=== PATIENT | female | born 1990 | race Caucasian/White ===

== ENCOUNTER 2018-03-31 10:15 | Inpatient (IN) | payer OTHER ==
[2018-03-31] MEDS ORDERED: Bicitra 30 ML UDCUP PO SCH (11:07)
[2018-03-31] MEDS ORDERED: Ondansetron PF 4 MG/2 ML Vial IVP PRN ×2 (11:07→16:00)
[2018-03-31] MEDS ORDERED: CEFAZOLIN/Water 2 GM/20 ML SYRINGE SLOW IVP SCH (11:07)
[2018-03-31] MEDS ORDERED: Promethazine HCl 25 MG/ML VIAL IM PRN ×2 (11:07→16:00)
[2018-03-31 11:08] VITALS: BMI 38.2
[2018-03-31] MEDS: Lactated Ringer's 1,000 ML IV SCH ×3 (11:10→19:38)
[2018-03-31 11:16] LABS: Hemoglobin 11.5 g/dL (12.0-16.0); Mean Corpuscular HGB CONC 33.7 g/dL (32.0-36.0); Mean Corpuscular Hemoglobin 29.8 pg (27.0-31.0); Mean Corpuscular Volume 88.4 fL (78.0-98.0); Mean Platelet Volume 8.6 fL (7.4-10.4); Platelet Count 143 thou/uL (130-400); Red Blood Cell (RBC) Count 3.87 mill/uL (4.20-5.40); White Blood Cell (WBC) Count 5.7 thou/uL (4.8-10.8)
--- NOTE | 2018-03-31 11:29 | PDOC.FPROB ---
FMR OB H&P: HPI - History of Present Illness Chief Complaint: scheduled Indentification: History of Present Illness: This is a 27yo at 39.4 EGA with sub optimal dating by LMP c/w 25.5w US presenting for repeat C section. Prior C section was due to Arrest of labor. Pt has no complaints or concerns at this time. Reports good mvt, denies vaginal bleeding, LOS, and significant contractions. was only significant for BV which she was treated for. Primary Care Physician: Dr. Ann DO FMR OB H&P: Current - Care : 2 Para: 1001 Gestational age: 39.4 Dating Criteria: LMP c/w 26.2w US sub optimal dating - OB Labs Blood type: AB RH: positive Antibody Screen: negative HIV: negative RPR: negative HepBsAg: negative Rubella: immune Quad screen: negative Urine drug screen: not done Gonorrhea: negative Chlamydia: negative 1 hour gtt: normal GBS: positive FMR OB H&P: History - Past Medical History PMH: none - OB History OB History: Prior C section for arrest of labor - Surgical History Sx History: C section - Social History Social History: denies etoh/tobacco/drugs - Family History Family History: CAD FMR OB H&P: Medications - Current Home Medications: Medication Instructions Recorded Confirmed Type Vit No.126/Iron/Folic 1 capsule PO DAILY 05/17/15 03/31/18 History [Classic ] Allergies/Adverse Reactions: Allergies Allergy/AdvReac Type Severity Reaction Status Date / Time No Known Allergies Allergy Verified 03/31/18 11:08 FMR OB H&P: ROS - Review of Systems General: denies: fever/chills, fatigue Eyes: denies: eye pain, vision changes ENT: denies: nasal congestion, rhinorrhea Cardiovascular: denies: chest pain, palpitation Respiratory: denies: congestion, shortness of breath Gastrointestinal: denies: abdominal pain, nausea, vomiting Genitourinary (Female): denies: dysuria, hematuria, polyuria Musculoskeletal: denies: pain, stiffness Neurologic: denies: syncope, seizures Integumentary: denies: rash, lesions Endocrine: denies: cold intolerance, heat intolerance Hematologic/Lymphatic: denies: prolonged or excessive bleeding Psychological: denies: depression, anxiety FMR OB H&P: Vital Signs - Maternal Vital signs: Vital Signs - First Documented Temp Pulse Resp BP 98.7 F 105 H 18 132/69 03/31/18 10:51 03/31/18 10:51 03/31/18 10:51 03/31/18 10:51 FMR OB H&P: Physical Exam - Physical Exam General: NAD, awake, alert and oriented HEENT: EOMI, grossly normal vision, grossly normal hearing Neck: supple, trachea midline Chest: non-tender to palpation Heart: RRR, normal S1/S2 General: CTAB, no wheezing Abdomen: gravid, bowel sound present Musculoskeletal: pulses present, no misalignment/asymmetry Neurological: sensation to pain,touch and proprioception grossly normal, no focal deficit Skin: no rash, good tugor Lymphatic: no unusual bruising or bleeding, no purpura Psychiatric: intact recent and remote memory, good judgement and insight FMR OB H&P: Results - Labs Lab results: Laboratory Results - last 24 hr 03/31/18 11:04 WBC 5.7 RBC 3.87 L Hgb 11.5 L Hct 34.2 L MCV 88.4 MCH 29.8 MCHC 33.7 RDW 15.0 H Plt Count 143 MPV 8.6 FMR OB H&P: A/P Discussion: 27yo at 39.4 EGA with sub optimal dating by LMP c/w 26.2w US presenting for repeat C section. Scheduled repeat A- pt has no acute problems and is ready for surgery. No signs/sympoms of maternal or distress P- admit pt to L&D - C section as OR is ready Addendum - Attending - Attending Attestation Date/Time: 03/31/18 1350 I personally evaluated the patient and discussed the management with Dr. Doyle , Maria Del Carmen, and Monica I agree with the History, Examination, Assessment and Plan documented above with any addition or exceptions noted below. 27 yo female at 39.4 wks by LMP/25.5 wk sono admitted for RLTCS. Patient doing well. No complaints. Reports good movement. No contractions , discharge, LOF, or vaginal bleeding. R/B/A discussed regarding repeat section. Patient would like to proceed with scheduled procedure. VS reviewed. Labs reviewed. Bedside sono performed. Cephalic. Anterior fundal placenta. Adequate fluid. Reactive NST. No contractions. 1. sIUP: IOB/2T/3T labs reviewed. Anatomy reviewed. GBS pos. 2. hx of LTCS 2/2 NRFHT remote from delivery, prolonged ROM, and failured postdates IOL after adequate contractions: Request repeat. 3. GBS carrier: Will receive Ancef prior to incision. No evidence of ROM or labor, therefore no need for ppx otherwise. 4. gThrombocytopenia: Mild. Has been stable in clinic. Will monitor pp. Dispo: Proceed with plan repeat when able. Eduardo
[2018-03-31] MEDS ORDERED: CEFAZOLIN 2 GM/50 ML-DEXTROSE 2 GM in Premix Bag 1 BAG IVPB SCH (11:30)
[2018-03-31 11:58] LABS: Syphilis Antibody Nonreactive (Nonreactive); Syphilis Antibody Index 0.03 S/CO (<1.00 Non-Reactive)
[2018-03-31 11:59] LABS: Hep B Surf Ag Non-Reactive S/CO (NonReactive)
[2018-03-31] MEDS ORDERED: ePHEDrine/0.9% NaCl/PF SYRINGE 50 mg/10 ml ONE ×2 (12:18→14:36)
[2018-03-31] MEDS ORDERED: PHENYLEPHRINE-NS 100 MCG/ML 10 ML SYRINGE ONE ×2 (12:18→14:36)
[2018-03-31] MEDS ORDERED: Morphine PF 1 MG/ML SYR ONE ×2 (14:35→15:05)
[2018-03-31] MEDS ORDERED: Ondansetron PF 4 MG/2 ML Vial ONE (14:36)
[2018-03-31] MEDS ORDERED: Ketorolac Tromethamine 30 MG/ML VIAL ONE (14:36)
[2018-03-31] MEDS ORDERED: Oxytocin 10 UNITS/ML VIAL ONE ×2 (14:36→17:10)
[2018-03-31] MEDS ORDERED: Naloxone HCl 0.4 mg/ml Vial IVP PRN ×2 (16:00)
[2018-03-31] MEDS ORDERED: Meperidine HCl/PF 25 MG/ML VIAL SLOW IVP PRN (16:00)
[2018-03-31] MEDS ORDERED: Ketorolac Tromethamine 30 MG/ML VIAL IVP SCH (16:00)
[2018-03-31] MEDS ORDERED: Naloxone HCl 0.4 mg/ml Vial IV PRN (16:00)
[2018-03-31] MEDS ORDERED: HYDROmorphone 2 MG/ML VIAL SLOW IVP PRN (16:00)
[2018-03-31] MEDS ORDERED: L&D-Morphine 4 MG/ML VIAL SLOW IVP PRN (16:00)
[2018-03-31] MEDS ORDERED: Promethazine HCl 25 MG SUPP PR PRN (16:00)
[2018-03-31] MEDS ORDERED: Communication Order-Pharmacy FS SCH (16:00)
[2018-03-31] MEDS ORDERED: Eucerin (Mineral Oil/Petrolatum,White) 30 gm Jar TOP PRN (16:00)
[2018-03-31] MEDS ORDERED: Ondansetron HCl/PF 4 MG/2 ML Vial IVP PRN (16:00)
[2018-03-31] MEDS ORDERED: Ketorolac Tromethamine 30 MG/ML VIAL IVP PRN (16:00)
[2018-03-31] MEDS ORDERED: NS / Oxytocin 40 units/1000ml 1,000 ML IV SCH (18:14)
[2018-03-31] MEDS ORDERED: Acetaminophen 325 MG TAB PO PRN (18:14)
[2018-03-31] MEDS ORDERED: Bisacodyl 10 MG SUPP PR PRN (18:14)
[2018-03-31] MEDS ORDERED: Carboprost 250 MCG/ML AMP ONE ×3 (18:41→19:01)
[2018-03-31] MEDS: Misoprostol 200 MCG TAB ONE ×4 (18:43→18:47)
[2018-03-31] MEDS ORDERED: NS / Oxytocin 40 units/1000ml 0 ML ONE (19:01)
[2018-03-31] MEDS ORDERED: Methylergonovine 0.2 MG/ML VIAL ONE (19:01)
--- NOTE | 2018-03-31 19:22 | PDOC.OBPPN ---
FMR OB PN: Subj - Interval History Hospital Day: 1 Day: 27 yr old s/p scheduled rLTCS approx 3.5 hrs PP. Called urgently to Post . As patient was being transferred at 1.5 hr, she was noted to have large amount vaginal blood loss- approx 350 ml. Within 20-30 min, 350 ml additional obtained. Vaginal sweep performed. Uterine fundus remained firm during this process. Chief Complaint: bleeding Interval History: FMR OB PN: Obj - Maternal Vital signs: BP: [122/65] HR: [124] RR: [18] - Lochia Lochia: increased lochia- few blood clots FMR OB PN: Exam - Physical Exam General: NAD, awake, alert and oriented Heart: normal S1/S2, no murmurs/rubs/gallops Deviation from normal: tachycardic and regular Abdomen: fundus(cm) (1 finger below umbilicus, firm) : bandage intact, appropriately tender - Pelvic Exam Deviation from normal: increased lochia, one approx half dollar size expressed on vaginal sweep FMR OB PN: Data - Labs Lab results: Laboratory Results - last 24 hr 03/31/18 03/31/18 03/31/18 11:04 11:04 11:04 WBC RBC Hgb Hct MCV MCH MCHC RDW Plt Count MPV Syphilis IgG/IgM Ab Nonreactive Hep Bs Antigen Non-Reactive Blood Type AB POSITIVE Antibody Screen NEGATIVE Crossmatch See Detail 03/31/18 11:04 WBC 5.7 RBC 3.87 L Hgb 11.5 L Hct 34.2 L MCV 88.4 MCH 29.8 MCHC 33.7 RDW 15.0 H Plt Count 143 MPV 8.6 Syphilis IgG/IgM Ab Hep Bs Antigen Blood Type Antibody Screen Crossmatch FMR OB PN: A/P - Problem List (1) Status post repeat low transverse section Current Visit: Yes Status: Acute Code(s): Z98.891 - HISTORY OF UTERINE SCAR FROM PREVIOUS SURGERY (2) hemorrhage Current Visit: Yes Status: Acute Code(s): O72.1 - OTHER IMMEDIATE HEMORRHAGE Qualifiers: hemorrhage type: unspecified Qualified Code(s): O72.1 - Other immediate hemorrhage Discussion: Date/Time: 03/31/181919 This note was discussed with Dr. Krugerd] who agree with the above documentation and plan. 27 yr old 3.5 hrs s/p scheduled rLTCS Post- hemorrhage qBL: 1551 ml patient receiving 2nd liter of pitocin PP, will start LR after complete. obtaining 2nd line s/p methergine s/p cytotec rectal 800 mg Vaginal sweep expressed couple half dollar size clots. uterus firm. H/H Pending 1 unit PRBC on stand by will reevaluate frequently rLTCS pain control, s/p 4 mg morphine during acute bleeding. monitor closely.
[2018-03-31] MEDS ORDERED: Morphine 2 MG/ML SYRINGE SLOW IVP SCH (19:30)
[2018-03-31 19:42] LABS: Hemoglobin 9.5 g/dL (12.0-16.0); Mean Corpuscular HGB CONC 33.9 g/dL (32.0-36.0); Mean Corpuscular Hemoglobin 30.3 pg (27.0-31.0); Mean Corpuscular Volume 89.5 fL (78.0-98.0); Platelet Count 142 thou/uL (130-400); Red Blood Cell (RBC) Count 3.12 mill/uL (4.20-5.40); White Blood Cell (WBC) Count 6.8 thou/uL (4.8-10.8)
[2018-03-31 20:01] LABS: #Monocytes 0.4 thou/uL (0.11-0.59); #Neutrophils 5.3 thou/uL (1.40-6.50); %Basophils 0.3 % (0.0-1.0); %Eosinophils 0.6 % (0.0-10.0); %Lymphocytes 15.1 % (21.0-51.0); %Monocytes 5.1 % (0.0-10.0); %Neutrophils 78.9 % (42.0-75.0); Anisocytosis SLIGHT = 6-15 cells (100X) (0-5/hpf); MDiff Complete? YES; Platelet Morphology Comment Appears Adequate
--- NOTE | 2018-03-31 22:09 | PDOC.OBPPN ---
FMR OB PN: Subj - Interval History Hospital Day: 1 Day: 0 Patient reports feeling well. Denies any lightheadedness or palpitations. Per nurse bleeding has significantly decreased since last evaluation. FMR OB PN: Obj - Maternal Vital signs: BP: 123/59 HR: 108 RR: 18 - Urine output I&O: 03/30/18 03/31/18 04/01/18 06:59 06:59 06:59 Output Total 390 Balance -390 - Lochia Lochia: minimal bleeding - Pain Management Intervention: IV medication FMR OB PN: Exam - Physical Exam General: NAD, awake, alert and oriented HEENT: normocephalic and atraumatic, grossly normal vision, grossly normal hearing Heart: normal S1/S2 General: CTAB, no respiratory distress, good air movement, no rales/rhonchi, no wheezing Abdomen: other (fundus appropriately tender) Musculoskeletal: pulses present, FROM in all four extremities Skin: no rash, good tugor : bandage intact, no drainage, appropriately tender Psychiatric: intact recent and remote memory, good judgement and insight, normal mood and affect FMR OB PN: Data - Labs Lab results: Laboratory Results - last 24 hr 03/31/18 03/31/18 03/31/18 11:04 11:04 11:04 WBC RBC Hgb Hct MCV MCH MCHC RDW Plt Count MPV Neutrophils % Neutrophils % (Manual) Lymphocytes % Monocytes % Eosinophils % Basophils % Neutrophils # Lymphocytes # Monocytes # Eosinophils # Basophils # Plt Morphology Comment Anisocytosis Syphilis IgG/IgM Ab Nonreactive Hep Bs Antigen Non-Reactive Blood Type AB POSITIVE Antibody Screen NEGATIVE Crossmatch See Detail 03/31/18 03/31/18 11:04 19:20 WBC 5.7 6.8 RBC 3.87 L 3.12 L Hgb 11.5 L 9.5 L Hct 34.2 L 27.9 L MCV 88.4 89.5 MCH 29.8 30.3 MCHC 33.7 33.9 RDW 15.0 H 15.0 H Plt Count 143 142 MPV 8.6 6.0 L Neutrophils % 78.9 H Neutrophils % (Manual) Not Reportable Lymphocytes % 15.1 L Monocytes % 5.1 Eosinophils % 0.6 Basophils % 0.3 Neutrophils # 5.3 Lymphocytes # 1.0 L Monocytes # 0.4 Eosinophils # 0.0 Basophils # 0.0 Plt Morphology Comment Appears Adequate Anisocytosis SLIGHT = 6-15 cells Syphilis IgG/IgM Ab Hep Bs Antigen Blood Type Antibody Screen Crossmatch FMR OB PN: A/P - Problem List (1) hemorrhage Current Visit: Yes Status: Acute Code(s): O72.1 - OTHER IMMEDIATE HEMORRHAGE Qualifiers: hemorrhage type: unspecified Qualified Code(s): O72.1 - Other immediate hemorrhage (2) Status post repeat low transverse section Current Visit: Yes Status: Acute Code(s): Z98.891 - HISTORY OF UTERINE SCAR FROM PREVIOUS SURGERY (3) Prolonged rupture of membranes, greater than 24 hours, delivered Current Visit: No Status: Acute Code(s): O42.10 - FABIEN ROM, ONSET LABOR > 24 HR FOL RUPT, UNSP WEEKS OF GEST (4) Status post section Current Visit: No Status: Acute Code(s): Z98.89 - OTHER SPECIFIED POSTPROCEDURAL STATES * DO NOT USE * Disposition: 27 yr old post-op day #0 s/p scheduled rLTCS Post- hemorrhage - Aware, qBL ~1551 ml since delivery but significant decrease in bleeding s/p methergine and cytotec & a 1L bolus of LR. - Repeat Hgb only down to 9.5 from 11.5 on admission. - Vitals stable w/ improving tachycardia. - Will continue to monitor vitals closely. Post-op day #0 s/p rLTCS - Will continue routine care. Discussion: Date/Time: 03/31/182208 This H&P was discussed with Dr. Thompson and Dr. Amaya who agree with the above documentation and plan.
--- NOTE | 2018-03-31 23:59 | OP ---
DATE OF PROCEDURE: 03/31/2018 RESIDENT SURGEON: Dr. Mehrdad Juarez. CNC GRINDER SURGEON: Dr. Shadi Regalado. ATTENDING SURGEON: Dr. Carol Herring. PROCEDURE PERFORMED: Repeat low transverse section. PREOPERATIVE DIAGNOSES: 1. Term intrauterine . 2. Previous section. 3. Gestational thrombocytopenia. 4. Anemia of . 5. GBS carrier. 6. Late care. POSTOPERATIVE DIAGNOSES: 1. Term intrauterine delivered. 2. Repeat low transverse section. 3. Gestational thrombocytopenia. 4. Anemia of . 5. GBS carrier. 6. Late care. ANESTHESIA: Spinal. INDICATIONS: The patient is a 27-year-old, G2, P1-0-0-1, female at 39 and 4 weeks gestation by LMP consistent with 25.5 week sono, who presented for repeat scheduled section. Risk, benefits, and alternatives with discussed with patient. Questions answered. Consents signed. Proceeded with planned repeat LTCS. DESCRIPTION OF PROCEDURE: After risks, benefits, and alternatives were explained to the patient, she gave informed consent. Preoperative antibiotics included 2 g of Ancef IV. The patient was taken to the operating room and spinal anesthesia was initiated. A time out was performed. The patient was placed in supine position with a left tilt and prepped and draped in usual sterile fashion. A Pfannenstiel incision was made with a scalpel and carried down to the level of the fascia which was sharply nicked. The fascial cut was extended bilaterally with Mcintyre scissors. The inferior and superior edges of the cut fascial edges were elevated with Krystian clamps and the underlying rectus muscles were bluntly and sharply dissected free. The recti were divided digitally and retracted manually. The peritoneum was entered bluntly and retracted manually. A large Dean O was then placed. A low transverse score was made with a scalpel and the uterus was entered in the midline with the scalpel. Clear fluid was seen. Hysterotomy was extended manually with cephalocaudal pressure. The infant was noted to be vertex and was easily delivered by fundal pressure. The mouth and nares were bulb suctioned. Delayed cord clamping was performed. After 60 seconds, the cord was clamped and cut. A grossly normal female was handed to awaiting nurse. Cord blood was obtained. Placenta was spontaneously delivered, found to be intact with 3-vessel cord, and discarded. The uterus was externalized and endometrium was curetted with a dry lap. The uterus was then closed with a running locking 1 Monocryl suture. Following this, hemostasis was noted and uterus was firm. The abdomen was suctioned free of clots. The uterus was then internalized and the hysterotomy was again noted to be hemostatic. The fascia was closed with a running nonlocking 0 PDS suture x 2. Subcutaneous tissue was irrigated and bleeders were cauterized with Bovie cauterization. Subsequently, the subcutaneous tissue was approximated with 3 simple interrupted 2-0 chromic gut sutures. The skin was then approximated with garret and a pressure dressing was placed. All counts were correct. The patient tolerated the procedure well and was taken to the recovery room in stable condition. QBL: 466 mL. COMPLICATIONS: None SPECIMENS: Cord blood sent to lab for blood type. Intact placenta discarded. FINDINGS: Grossly normal female infant with Apgars of 8 and 9. Delivery at 1547. Grossly normal placenta with 3-vessel cord. DRAINS: Bryant to gravity, draining clear urine. Job ID: [id number] Attending Note: I was present and participated in the procedure documented above and agree with the documentation. 27 yo female at 39.4 wks by LMP/25.5 wk sono admitted for repeat LTCS. was complicated by late care, anemia of , BMI 38, gestational thrombocytopenia, GBS carrier, and prior LTCS due to failed IOL and NRFHT. R/B/A discussed. Consents signed. Time out performed. Proceeded with repeat LTCS. Uncomplicated section. No significant scaring encounter. Uterus closed in 1 layer. Hemostatic full closure. Urine clear. Skin closed with garret. Pressure dressing placed. Female was delivery OA position at 1547. Placenta removed intact. Routine recovery and care. Eduardo TELLES
[2018-04-01] MEDS: diphenhydrAMINE 50 MG/ML VIAL IVP PRN ×2 (00:17→05:00)
[2018-04-01] MEDS: Lactated Ringer's 1,000 ML IV SCH ×3 (00:20→06:45)
[2018-04-01] MEDS: HYDROcodone/Acetaminophen 5/325 mg Tablet PO PRN ×4 (04:24→20:31)
--- NOTE | 2018-04-01 07:48 | PDOC.PP ---
Post Progress Note Post Day #: 1 Subjective: 27 yo s/p rLTCS po day #1. Complicated by PPH overnight s/p methergine and cytotec. Currently pt reports feeling tired, otherwise no complaints. Bleeding has stopped after med administration. PO intake tolerated: yes Flatus: no Ambulation: no Vital Signs (12 hours) Temp Pulse Resp BP 04/01/18 04:15 98.5 F 113 H 18 118/55 L 04/01/18 00:00 98.3 F 113 H 20 115/66 03/31/18 21:55 125 H 20 112/60 03/31/18 20:30 118 H 20 124/62 03/31/18 20:15 113 H 20 124/66 03/31/18 20:00 113 H 20 130/73 Weight Weight 104.326 kg - Physical Examination General: NAD Cardiovascular: no m/r/g Deviation from normal: tachycardic, regular rhythm Respiratory: clear to auscultation bilaterally Abdominal: + bowel sounds, lochia, no distention, appropriately TTP Deviation from normal: pressure dressing remains in place, remove later this afternoon Neurological: no gross focal deficits Psychiatric: normal affect Result Diagrams: 04/01/18 06:59 Additional Labs: Post Labs Blood Type AB POSITIVE 03/31/18 11:04 Hep Bs Antigen Non-Reactive S/CO (NonReactive) 03/31/18 11:04 (1) hemorrhage Code(s): O72.1 - OTHER IMMEDIATE HEMORRHAGE Status: Acute Qualifiers: hemorrhage type: unspecified Qualified Code(s): O72.1 - Other immediate hemorrhage (2) Status post repeat low transverse section Code(s): Z98.891 - HISTORY OF UTERINE SCAR FROM PREVIOUS SURGERY Status: Acute - Assessment/Plan 1) s/p rLTCS - QBL 1550 - additional 35omL lost overnight - uterus remains firm - bleeding now scant after med administration - ADAT, remove anthony and pressure dressing this afternoon and encourage ambulation 2) PPH: - see #1 - repeat hemagram @ 1200 - mildly tachycardic - cont IVF resusc Dispo: stable, trend h/h, monitor Is/Os, anthony out and pressure dressing removed this afternoon. Addendum - Attending - Attending Attestation Date/Time: 04/01/18 1233 I personally evaluated the patient and discussed the management with Dr. Juarez I agree with the History, Examination, Assessment and Plan documented above with any addition or exceptions noted below. 27 yo now female s/p RLTCS at 39.4 wks on 03/31/18 at 1547. HD#1 POD/PPD#1 Patient reporting fatigue, weakness, and generalized tiredness. Noted to have PPH last night. Lochia now mild. . Denies dizziness, CP, palpitations, SOB. VS reviewed. Labs reviewed. Weak/tired. AAO x 4 Increase HR, regular. no murmurs CTA bilaterally. no w/c/r Fundus firm. Appropriately tender. Incision clean and dry. no drainage or erythema. garret in place. FROM x 4. no edema 1. s/p RLTCS: Uncomplicated section. QBL 466 mL. Continue routine pp care. Remove garret prior to d/c on hospital day 3. 2. BMI 38: Lifestyle changes. Encourage . 3. GBS carrier: No s/sx of infection. 4. gThrombocytopenia: Monitor. 5. PPH: Likely related to placenta bed involution and thrombocytopenia. Resolved with miso, pit, and methergine. Lochia appropriate now. Continue to monitor VS and UOP closely. Reports fatigue. Will bolus 1L and re-evaluate. Discussed blood products with patient at bedside. Iron started. Check orthostatics prior to patient ambulating. 6. Contraception: LARC Dispo: Continue current care. Monitor closely throughout the day due to possible need for transfusion. Eduardo
[2018-04-01 08:25] LABS: Hemoglobin 7.3 g/dL (12.0-16.0); Mean Corpuscular HGB CONC 33.7 g/dL (32.0-36.0); Mean Corpuscular Hemoglobin 30.2 pg (27.0-31.0); Mean Corpuscular Volume 89.6 fL (78.0-98.0); Mean Platelet Volume 8.2 fL (7.4-10.4); Platelet Count 113 thou/uL (130-400); RBC Distribution Width 15.1 % (11.5-14.5); Red Blood Cell (RBC) Count 2.42 mill/uL (4.20-5.40); White Blood Cell (WBC) Count 5.7 thou/uL (4.8-10.8)
[2018-04-01] MEDS ORDERED: Adacel (T-DAP) 0.5 ML SYRINGE IM ONE (09:00)
[2018-04-01] MEDS ORDERED: Lactated Ringer's 1,000 ML IV SCH (09:00)
[2018-04-01] MEDS: Prenatal Vitamin 1 TAB PO SCH (09:55)
--- NOTE | 2018-04-01 17:14 | PDOC.EVN ---
Event Note - Event Note Event Note: S: Pt states that she feels better and less fatigued compared to this morning. She is ambulating well without symptoms. She denies chest pain, palpitations, dyspnea, RHODES, and nausea. Pain well controlled with PO medications. O: orthostatic vitals wnl. Gen: alert and oriented in no distress. Heart: mildly tachycardic, no murmurs, rubs, or gallops. Lungs: clear to auscultation bilaterally A/P POD #2 s/p rLTCS complicated by PPH a few hours after delivery. -pt is asymptomatic at this time. - will hold off on transfusion at this time. May consider H/H and transfusion if pt becomes symptomatic. - continue routine PP care.
[2018-04-01] MEDS ORDERED: Sodium Chloride 0.9% 10 ML ONE (18:24)
[2018-04-01] MEDS: Ferrous Sulfate 325 MG TAB PO SCH (18:26)
[2018-04-01] MEDS: Ibuprofen 800 MG TAB PO PRN (20:30)
[2018-04-01] MEDS: Simethicone Chewable 80 MG TAB PO PRN (20:30)
[2018-04-02] MEDS: Simethicone Chewable 80 MG TAB PO PRN ×2 (05:08→14:39)
[2018-04-02] MEDS: Ibuprofen 800 MG TAB PO PRN ×2 (05:08→14:39)
[2018-04-02] MEDS: HYDROcodone/Acetaminophen 5/325 mg Tablet PO PRN ×3 (05:13→14:39)
[2018-04-02] MEDS: Ferrous Sulfate 325 MG TAB PO SCH ×2 (09:15→20:21)
[2018-04-02] MEDS: Prenatal Vitamin 1 TAB PO SCH (09:15)
--- NOTE | 2018-04-02 09:37 | PDOC.PP ---
Post Progress Note Post Day #: 2 Subjective: 27 yo postop day s/p rLTCS w/o perioperative complications. Pt had PP hemorrhage and was given methergine and cytotec PP day 1. Since medications given, no other bleeding. One clot per nursing report, otherwise scant bleeding. Pt denies dizziness, lightheadedness, global weakness, cp, sob, ruq/ epigastric pain. PO intake tolerated: yes Flatus: yes Ambulation: yes Vital Signs (12 hours) Temp Pulse Resp BP BP BP Pulse Ox 04/02/18 08:13 98.4 F 101 H 20 124/71 96 04/02/18 04:00 98.2 F 99 20 120/63 04/02/18 00:00 98.6 F 105 H 20 123/61 Weight Weight 104.326 kg - Physical Examination General: NAD Cardiovascular: no m/r/g, RRR Respiratory: clear to auscultation bilaterally, non-labored breathing Abdominal: + bowel sounds, lochia, no distention, appropriately TTP Skin: CS incision dry & intact, no rash Neurological: no gross focal deficits Psychiatric: normal affect Result Diagrams: 04/01/18 06:59 Additional Labs: Post Labs Blood Type AB POSITIVE 03/31/18 11:04 Hep Bs Antigen Non-Reactive S/CO (NonReactive) 03/31/18 11:04 (1) hemorrhage Code(s): O72.1 - OTHER IMMEDIATE HEMORRHAGE Status: Acute Qualifiers: hemorrhage type: unspecified Qualified Code(s): O72.1 - Other immediate hemorrhage (2) Status post repeat low transverse section Code(s): Z98.891 - HISTORY OF UTERINE SCAR FROM PREVIOUS SURGERY Status: Acute (3) Gestational thrombocytopenia Code(s): O99.119 - OTH DIS OF BLD/BLD-FORM ORG/IMMUN MECHNSM COMP PREG,UNSP TRI ; D69.6 - THROMBOCYTOPENIA, UNSPECIFIED Status: Acute - Assessment/Plan 1) s/p rLTCS - pt post op course complicated by PPH w/ qbl pp 1550. This is jacki 2/2 gestational thrombocytopenia. Latest Hgb 7.3. Tachycardia is resolving and pt is asymptomatic. Ambulating without trouble. As such, no repeat hemagram unless pt becomes symptomatic. Cont oral iron. - jacki [place] tomorrow 2) PPH - see #1 3) Gest thrombocytopenia - see #1 Addendum - Attending - Attending Attestation Date/Time: 04/02/18 1057 I personally evaluated the patient and discussed the management with Dr. Juarez I agree with the History, Examination, Assessment and Plan documented above with any addition or exceptions noted below. 27 yo now female s/p RLTCS at 39.4 wks on 03/31/18 at 1547. HD#2 POD/PPD#2 Doing well. No acute changes overnight. Fatigue and weakness improved throughout the day. Able to ambulate the halls without complications. Breast feeding improving. VS reviewed. Labs reviewed. NAD RRR. no murmurs CTA bilaterally. no w/c/r Fundus firm. Appropriately tender. Incision clean and dry. no drainage or erythema. garret in place. FROM x 4. no edema 1. s/p RLTCS: Uncomplicated section. QBL 466 mL. Continue routine pp care. Remove garret prior to d/c on hospital day 3. 2. BMI 38: Lifestyle changes. Encourage . 3. GBS carrier: No s/sx of infection. 4. gThrombocytopenia: Monitor. 5. PPH: Likely related to placenta bed involution and thrombocytopenia. Resolved with miso, pit, and methergine. Lochia appropriate now. 55 mL clot out last night. Continue to monitor VS and UOP closely. Iron started. 6. Contraception: LARC Dispo: Continue current care. Monitor closely throughout the day. Eduardo
--- NOTE | 2018-04-02 11:04 | PDOC.EVN ---
Event Note - Event Note Event Note: Stopped by nurse in the devi. Notified that patient passed large clot well going to bathroom. Otherwise lochia has been appropriate. Patient without complaints. Walking down the devi currently. Denies cramping. Fundus firm -3 below the umbilicus. Clot measured. 154 mL. Now delayed PPH. Likely still related to thrombocytopenia, platelet dysfunction , and placental bed involution. Will review MAR. Use other pain agents other than NSAIDs this time due to mild side-effects of platelet dysfunction. Will repeat hemagram at 15:00. Earlier if needed. Monitor VS closely and symptoms. Eduardo
[2018-04-02 15:16] LABS: Hemoglobin 7.3 g/dL (12.0-16.0); Mean Corpuscular HGB CONC 33.4 g/dL (32.0-36.0); Mean Corpuscular Hemoglobin 30.2 pg (27.0-31.0); Mean Corpuscular Volume 90.6 fL (78.0-98.0); Mean Platelet Volume 7.9 fL (7.4-10.4); Platelet Count 117 thou/uL (130-400); RBC Distribution Width 14.9 % (11.5-14.5); Red Blood Cell (RBC) Count 2.42 mill/uL (4.20-5.40); White Blood Cell (WBC) Count 5.4 thou/uL (4.8-10.8)
[2018-04-02] MEDS ORDERED: Iron Sucrose Complex 200 MG in Sodium Chloride 0.9% 250 ML 250 ML IVPB SCH (16:15)
[2018-04-03] MEDS: HYDROcodone/Acetaminophen 5/325 mg Tablet PO PRN ×3 (00:31→14:10)
--- NOTE | 2018-04-03 08:08 | PDOC.PP ---
Post Progress Note Post Day #: 3 Subjective: 27 yo po day 3 s/p rLTCS. No complaints, reports she is feeling well and denies any continued bleeding. PO intake tolerated: yes Flatus: yes Ambulation: yes Weight Weight 104.326 kg - Physical Examination General: NAD Cardiovascular: no m/r/g, RRR Respiratory: clear to auscultation bilaterally, non-labored breathing Abdominal: + bowel sounds, lochia, no distention, appropriately TTP Fundus firm & at: below umbilicus Skin: CS incision dry & intact, no rash Neurological: no gross focal deficits Result Diagrams: 04/02/18 15:02 Additional Labs: Post Labs Blood Type AB POSITIVE 03/31/18 11:04 Hep Bs Antigen Non-Reactive S/CO (NonReactive) 03/31/18 11:04 (1) hemorrhage Code(s): O72.1 - OTHER IMMEDIATE HEMORRHAGE Status: Acute Qualifiers: hemorrhage type: unspecified Qualified Code(s): O72.1 - Other immediate hemorrhage (2) Status post repeat low transverse section Code(s): Z98.891 - HISTORY OF UTERINE SCAR FROM PREVIOUS SURGERY Status: Acute (3) Gestational thrombocytopenia Code(s): O99.119 - OTH DIS OF BLD/BLD-FORM ORG/IMMUN MECHNSM COMP PREG,UNSP TRI ; D69.6 - THROMBOCYTOPENIA, UNSPECIFIED Status: Acute - Assessment/Plan 1) s/p rLTCS - s/p iron infusion 2/2 PPH from g thrombocytopenia. - ok for dc to home today with close OP f/u - garret removed PT discharge 2) PPH - see #1 - close OP f/u - no s/s cont bleeding and HH stable 3) Gest thrombocytopenia - see #1 Dispo: Stable. Ok for DC to home today if no continued bleeding. Addendum - Attending - Attending Attestation Date/Time: 04/03/18 1004 I personally evaluated the patient and discussed the management with Dr. Juarez I agree with the History, Examination, Assessment and Plan documented above with any addition or exceptions noted below. 27 yo now female s/p RLTCS at 39.4 wks on 03/31/18 at 1547. HD#3 POD/PPD#3 Doing well. No complications. No acute changes. No episodes of further bleeding. Breast feeding has continued to improve. Milk production has increased. VS reviewed. Labs reviewed. NAD RRR. no murmurs CTA bilaterally. no w/c/r Fundus firm. Appropriately tender. Incision clean and dry. no drainage or erythema. garret in place. FROM x 4. no edema 1. s/p RLTCS: Uncomplicated section. QBL 466 mL. Continue routine pp care. Remove garret prior to d/c. 2. BMI 38: Lifestyle changes. Encourage . 3. GBS carrier: No s/sx of infection. 4. gThrombocytopenia: Monitor. 5. PPH: Likely related to placenta bed involution and thrombocytopenia. Resolved with miso, pit, and methergine. 6. Delayed, secondary PPH after 24 hours: Large clot passed yesterday afternoon totaling 150 mL. Now resolved without intervention. Continue to monitor. Concern for possible von willebrand dz. 7. Contraception: LARC 8. Acute blood loss anemia: s/p iron infusion. Tolerated well. Continue outpatient oral iron replacement. Consider repeat infusion as needed. Dispo: Ok to d/c to home. Follow up at [facility] on Friday. ABrtimurMD
[2018-04-03] MEDS: Ferrous Sulfate 325 MG TAB PO SCH (08:36)
[2018-04-03] MEDS: Prenatal Vitamin 1 TAB PO SCH (08:36)
[2018-04-03 11:49] VITALS: BP 131/65; TEMP 97.6
== END 2018-04-03 17:30 | disposition home or self-care (01) | DRG 787 ==
LOC: L&D 10:15 → 3SW 18:02
PROVIDERS: ADMIT Student in an Organized Health Care Education/Training Program; ATTEND Student in an Organized Health Care Education/Training Program
PROC: 10D00Z1 Extraction of Products of Conception, Low, Open Approach (ICD-10-PCS; principal; 2018-03-31)
DX: O34.211 Maternal care for low transverse scar from previous cesarean delivery (principal); O99.12 Other diseases of the blood and blood-forming organs and certain disorders involving the immune mechanism complicating childbirth; O72.1 Other immediate postpartum hemorrhage; D62 Acute posthemorrhagic anemia; O99.824 Streptococcus B carrier state complicating childbirth; Z3A.39 39 weeks gestation of pregnancy; Z37.0 Single live birth; D69.6 Thrombocytopenia, unspecified; O42.113 Preterm premature rupture of membranes, onset of labor more than 24 hours following rupture, third trimester; O90.81 Anemia of the puerperium
CPT/HCPCS: 36415; 51702; 85027; 86780; 86850; 86900; 86901; 87340; J1200; J1756; J1885; J2210; J2270; J2274; J2405; J2590; J3490; J7050

== ENCOUNTER 2018-05-04 07:02 | Emergency (ER) | payer OTHER ==
[2018-05-04 07:39] LABS: #Eosinphils 0.2 thou/uL (0.0-0.7); #Lymphocytes 1.1 thou/uL (1.20-3.40); #Monocytes 0.4 thou/uL (0.11-0.59); %Basophils 0.7 % (0.0-1.0); %Eosinophils 3.3 % (0.0-10.0); %Lymphocytes 23.3 % (21.0-51.0); %Monocytes 8.6 % (0.0-10.0); %Neutrophils 64.1 % (42.0-75.0); Hemoglobin 10.7 g/dL (12.0-16.0); Mean Corpuscular HGB CONC 32.8 g/dL (32.0-36.0); Mean Corpuscular Volume 88.3 fL (78.0-98.0); Mean Platelet Volume 8.3 fL (7.4-10.4); Platelet Count 167 thou/uL (130-400); RBC Distribution Width 14.6 % (11.5-14.5); Red Blood Cell (RBC) Count 3.71 mill/uL (4.20-5.40); White Blood Cell (WBC) Count 4.7 thou/uL (4.8-10.8)
[2018-05-04 07:59] LABS: ALT (SGPT) 125 U/L (8-55); AST (SGOT) 172 U/L (5-34); Albumin 3.9 g/dL (3.5-5.0); Alkaline Phosphatase 139 U/L (40-150); Anion Gap 14 mmol/L (10-20); BUN (Urea Nitrogen) 10 mg/dL (7.0-18.7); Bilirubin, Total 0.5 mg/dL (0.2-1.2); Calc. Creatinine Clearance 0 mL/min (70-130); Calcium 9.6 mg/dL (7.8-10.44); Carbon Dioxide 21 mmol/L (22-29); Chloride 108 mmol/L (98-107); Estimated GFR-MDRD Greater than 90; Globulin 2.5 g/dL (2.4-3.5); Glucose 88 mg/dL (70-105); Lipase 46 U/L (8-78); Potassium 3.8 mmol/L (3.5-5.1); Protein, Total 6.4 g/dL (6.0-8.3); Sodium 139 mmol/L (136-145)
--- NOTE | 2018-05-04 10:42 | ULT ---
ULTRASOUND GALLBLADDER RIGHT UPPER QUADRANT: Date: 05/04/18 HISTORY: Right upper quadrant pain. COMPARISON: None. FINDINGS: Real-time Griggs scale and color evaluation of the right upper quadrant of the abdomen was performed. Visualized portions of the pancreas and IVC are unremarkable. Hepatic echotexture is normal. Liver measures 16.5 cm in length. Portal vein is patent with antegrade flow. Common bile duct measure s 4.0 mm. There is cholelithiasis without cholecystitis. Right kidney measures 12.1 x 4.9 x 5.6 cm without mass , hydronephrosis, or abnormal calcifications. No pericholecystic fluid. Common bile duct measures 4.0 mm. Sonographic Mata's sign is negative. IMPRESSION: Cholelithiasis without cholecystitis. POS: HERNAN
== END 2018-05-04 10:25 | disposition home or self-care (01) ==
LOC: ERS 07:02
DX: K80.70 Calculus of gallbladder and bile duct without cholecystitis without obstruction (principal); Z79.891 Long term (current) use of opiate analgesic
CPT/HCPCS: 36415; 76705; 80053; 83690; 85025; 93005

== ENCOUNTER 2018-05-13 11:25 | Day surgery (SDC) | payer OTHER ==
[2018-05-12 13:06] VITALS: BMI 34.9
[2018-05-13] MEDS ORDERED: Ketorolac Tromethamine 30 MG/ML VIAL ONE ×2 (12:06→15:28)
[2018-05-13] MEDS ORDERED: Scopolamine 1.5 mg/72 hour Patch ONE (12:07)
[2018-05-13] MEDS ORDERED: Ondansetron PF 4 MG/2 ML Vial ONE (15:28)
[2018-05-13] MEDS ORDERED: Succinylcholine Chloride 20 MG/ML 10 ml SYRINGE FS ONE (15:28)
[2018-05-13] MEDS ORDERED: PROPOFOL 200 MG/20 ML VIAL ONE (15:28)
[2018-05-13] MEDS ORDERED: Lidocaine 1% PF 5 ML VIAL ONE (15:28)
[2018-05-13] MEDS ORDERED: Bupivacaine HCl 0.5%/Epinephrine 1:200,000/PF 30 ml Vial ONE (15:55)
[2018-05-13] MEDS ORDERED: Midazolam HCl 2 mg/2 ml Vial ONE (16:02)
[2018-05-13] MEDS ORDERED: Fentanyl 100 MCG/2 ML VIAL ONE (16:02)
[2018-05-13] MEDS ORDERED: HYDROcodone/Acetaminophen 5/325 mg Tablet ONE (18:10)
--- NOTE | 2018-05-13 23:05 | OP ---
DATE OF PROCEDURE: 05/13/2018 PREOPERATIVE DIAGNOSES: Chronic cholecystitis and cholelithiasis. POSTOPERATIVE DIAGNOSES: Chronic cholecystitis and cholelithiasis. PROCEDURE PERFORMED: Laparoscopic video cholecystectomy. ANESTHESIA: General with local 0.5% Marcaine with epinephrine 30 mL. DESCRIPTION OF PROCEDURE: The patient was taken to the operating room, where under general anesthesia, abdomen was prepared with ChloraPrep and draped in routine fashion. Local anesthetic was infiltrated in the skin and subcutaneous tissue at each port site. Infraumbilical incision was made. Pneumoperitoneum to 15 mmHg was obtained with Veress needle, replaced with a 5 port, laparoscope inserted. Liver appeared to be normal. Right subxiphoid incision was made and 11 port placed, right subcostal incision was made, midclavicular and anterior axillary line, the 5 mm port was placed. Fundus of the gallbladder was grasped at cephalad. Infundibulum grasped and reflected laterally. Cystic artery and duct were dissected free. Critical view obtained. Cystic artery and duct double clipped, divided. Gallbladder was dissected free from liver bed, obtaining good hemostasis prior to division of the final attachments. Gallbladder and contents removed, submitted to Pathology. Good hemostasis ensured. Irrigant and pneumoperitoneum evacuated. All instruments removed. All skin incisions were approximated with subdermal 4-0 Monocryl. [place] glue applied. Job ID: [id number]
== END 2018-05-13 19:15 | disposition home or self-care (01) ==
LOC: SDC 11:25
PROVIDERS: ATTEND Specialist
PROC: 0FT44ZZ Resection of Gallbladder, Percutaneous Endoscopic Approach (ICD-10-PCS; principal; 2018-05-13)
DX: K80.10 Calculus of gallbladder with chronic cholecystitis without obstruction (principal); Z79.899 Other long term (current) drug therapy
CPT/HCPCS: 88304; J0131; J0670; J1885; J2001; J2250; J2405; J2704; J3010

== ENCOUNTER 2022-12-10 18:12 | Emergency (ER) | payer OTHER | END 2022-12-10 20:49 | disposition home or self-care (01) | LOC: ERS 18:12 | DX: J02.9 Acute pharyngitis, unspecified (principal) | CPT/HCPCS: 87430; 99283 ==

== ENCOUNTER 2023-02-10 16:13 | Emergency (ER) | payer OTHER | END 2023-02-10 17:30 | disposition home or self-care (01) | LOC: ERS 16:13 | DX: H93.8X2 Other specified disorders of left ear (principal) | CPT/HCPCS: 99282 ==

== ENCOUNTER 2023-08-29 19:45 | Emergency (ER) | payer OTHER ==
[2023-08-29] MEDS ORDERED: Ibuprofen 800 MG TAB ONE (21:06)
[2023-08-29] MEDS ORDERED: Amoxicillin/Potassium Clav 875 MG TAB ONE (23:09)
== END 2023-08-29 23:20 | disposition home or self-care (01) ==
LOC: ERS 19:45
DX: H66.92 Otitis media, unspecified, left ear (principal)
CPT/HCPCS: 99282